=== PATIENT | female | born 1995 | race Caucasian/White ===

== ENCOUNTER 2017-07-12 21:22 | Emergency (ER) | END 2017-07-13 03:27 | disposition home or self-care (01) ==

== ENCOUNTER 2019-01-28 22:57 | Emergency (ER) | payer MEDICAID, OTHER ==
[~2019-01-28] VITALS: Ht 154.9 cm; Wt 81.5 kg
[~2019-01-28 22:57] MED LIST: ACET500C5 PO; IBUP-1542 PO; NITR-58 PO; ONDA4TAB8 PO; PREN-93 PO
[2019-01-28 23:32] VITALS: Ht 154.9 cm; Wt 81.5 kg
[2019-01-29] MEDS ORDERED: ACETAMINOPHEN 500 MG TAB PO STA (02:51)
[2019-01-29 05:11] VITALS: BP 114/77; PULSE 65; RESP 20
== END 2019-01-29 05:12 | disposition home or self-care (01) ==
LOC: FTE 22:57
DX: O26.891 Other specified pregnancy related conditions, first trimester (principal); R10.2 Pelvic and perineal pain; Z3A.11 11 weeks gestation of pregnancy
CPT/HCPCS: 76801; 80053; 81001; 82150; 83690; 84702; 85025; 86900; 86901; 87086; Z7502; Z7610